=== PATIENT | male | born 1965 | race Caucasian/White ===

== ENCOUNTER 2018-07-23 09:15 | Emergency (ER) | payer BC, OTHER ==
[~2018-07-23] VITALS: Ht 175.3 cm; Wt 89.2 kg
--- NOTE | 2018-07-23 09:33 | NUR ---
CONTACT WITH PT, 52 YR OLD MALE HERE WITH C/O " [place]/N/V 1-2 DAYS, CAME ON QUICKLY", HAS HX OF BRAIN SHUNT
[2018-07-23] MEDS ORDERED: DIPHENHYDRAMINE 50 MG/ML, 1ML IVPush ONE (10:00)
[2018-07-23] MEDS ORDERED: METOCLOPRAMIDE 5 MG/ML, 2ML IVPush ONE (10:00)
[2018-07-23] MEDS ORDERED: DIPHENHYDRAMINE 50 MG/ML, 1ML ONE (10:01)
[2018-07-23] MEDS ORDERED: METOCLOPRAMIDE 5 MG/ML, 2ML ONE (10:01)
--- NOTE | 2018-07-23 10:11 | NUR ---
PT MEDICATED FOR 6/10 HEAD PAIN ORDERD. PT UPDATED ON POC. NO NEEDS EXPRESSED AT THIS TIME.
--- NOTE | 2018-07-23 10:35 | NUR ---
PT RETURN TO ROOM, SLIGHT IMPROVEMENT IN SYMPTOMS. PT PROVIDED WITH BLANKET AND PILLOW. NO OTHER NEEDS EXPRESSED AT THIS TIME. AWAITING TEST RESULTS.
[2018-07-23] MEDS ORDERED: SODIUM CHLORIDE 0.9% 1,000ML IVBOLUS ONE (11:30)
--- NOTE | 2018-07-23 11:37 | NUR ---
PT WITH PAIN DECREASED TO 3/10. DENIES NAUSEA AT THIS TIME. IV FLUIDS INFUSING ORDERED. NO NEEDS EXPRESSED AT THIS TIME.
[2018-07-23 12:19] VITALS: BP 112/69
--- NOTE | 2018-07-23 12:19 | NUR ---
IV FLUIDS COMPLETED. PT IN NO ACUTE DISTRESS, IV DC'D WITH CANNULA INTACT. REVIEWED DC INSTRUCTIONS WITH PT, PT LEFT AMB, GAIT STEADY WITH FAMILY.
== END 2018-07-23 12:22 | disposition home or self-care (01) ==
LOC: ED 10:44
DX: G43.009 Migraine without aura, not intractable, without status migrainosus (principal)
CPT/HCPCS: 70450; 96361; 96374; 96375; 99284; J1200; J2765; J7030